=== PATIENT | female | born 1980 | race Caucasian/White ===

== ENCOUNTER 2023-09-02 09:51 | Outpatient (REF) | payer SELFPAY ==
--- NOTE | ~2023-09-02 | US_ITS ---
EXAMINATION: US RETROPERITONEAL LIMITED (AORTA) CLINICAL INFORMATION: Hypertension. Family history of AAA (father). COMPARISON: None available. TECHNIQUE: Arza-scale, color Doppler and spectral Doppler evaluation of the abdominal aorta. FINDINGS: The aorta is normal. The measurements of the aorta in maximum AP and transverse dimensions respectively are as follows: Proximal: 2.1 x 1.8 cm. Mid: 1.4 x 1.5 cm. Distal: 1.5 x 1.5 cm. PSV: Approximately 90 cm/s. The measurements of the common iliac arteries in maximum AP and TRV dimensions are as follows: Right Common Iliac Artery: 1.3 x 1.1 cm. Left Common Iliac Artery: 0.9 x 1.0 cm. US/US aorta IMPRESSION: 1. No evidence of abdominal aortic aneurysm. 2. 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
== END 2023-09-02 09:52 | disposition home or self-care (01) ==
LOC: HO.UMASIMG 09:51
PROVIDERS: PCP Family Medicine; Visit Provider Family Medicine
DX: Z13.6 Encounter for screening for cardiovascular disorders (principal); I10 Essential (primary) hypertension; Z82.49 Family history of ischemic heart disease and other diseases of the circulatory system
CPT/HCPCS: 76775